=== PATIENT | female | born 1975 | race Hispanic/Latino ===

== ENCOUNTER → 2017-02-12 | Day surgery (SDC) | payer BC ==
[~2017-02-12] MED LIST: ALBUTEROL0.63 MG/3 IH; CIPROFLOXACIN750 MG PO; DICYCLOMINE HCL20 MG PO; EPHEDRINE SULFATE INJ 50 MG/10 ML SYR ONE; FENTANYL CITRATE/PF 100MCG/2 ML INJ ONE; FLECTOR1 EACH PO; GLUCAGON FOR INJ 1 MG VIAL ONE; HYDROCORTISONE SOD SUCCINATE 100 MG VIAL ONE; LIDOCAINE HCL 2% LOCAL INJ 5 ML SDV VIAL INJ ONE; MEDROL4 MG/DOSE-; MIDAZOLAM HCL 5MG/ML 2ML VIAL ONE; MONTELUKAST SOD10 MG PO; PREDNISONE10 MG PO; PROPOFOL IV EMULSION 10 MG/ML 50 ML VIAL ONE; SYNTHROID50 MCG PO; VITAMIN D1000 UNI1 PO; Z.0.ATENOLOL25 MG PO; Z.0.HYDROCHLOROTHIA2 PO; Z.0.NAPROXEN500 M1 PO; [UNRECOGNIZED DRUG - OTHER] PO
--- NOTE | 2017-02-12 14:14 | Operative Report ---
DATE OF PROCEDURE: February 12, 2017 REFERRING PHYSICIAN: Dr. Pradip Garcia. PROCEDURE PERFORMED: 1. Esophagogastroduodenoscopy. 2. Colonoscopy with polypectomy. INDICATIONS FOR ESOPHAGOGASTRODUODENOSCOPY: Dysphagia to solids. Heartburn indigestion. INDICATIONS FOR COLONOSCOPY: Diarrhea, intermittent. History of bright red blood per rectum. MEDICATION: Patient was done under MAC. Please see anesthesiologist's note. PROCEDURE: With the patient in the left lateral decubitus position, the flexible fiberoptic Olympus gastroscope was introduced into the esophagus under direct visualization without any difficulty. There was some patchy erythema noted in the distal esophagus. Some focal nodularity was noted at the GE junction, and that was biopsied. There was a mild stricture also at the GE junction, and that was dilated to size 52-[place] Marte. The scope was then advanced with ease into the stomach. Mucosa overlying the antrum and the body revealed some patchy intense erythema and mild to moderate edema, and biopsies were obtained and sent to stain for H. pylori. The pylorus was of normal contour and shape, was intubated with ease, and the scope was advanced all the way to the 2nd portion of the duodenum. The scope was then withdrawn slowly. Mucosa overlying the proximal 2nd portion appeared to be within normal limits. Biopsies were obtained to rule out sprue considering patient's history of diarrhea. The mucosa overlying the duodenal bulb appeared to be within normal limits. The scope was then withdrawn back into the stomach and retroflexed, and the mucosa overlying the fundus and the cardia appeared to be within normal limits. The scope was then straightened out. The stomach was decompressed. The scope was subsequently withdrawn. Patient tolerated the procedure well. IMPRESSION: 1. Distal esophagitis. 2. Stricture at gastroesophageal junction, mild, dilated to size 52-[place] Marte. 3. Focal nodularity at gastroesophageal junction biopsied. 4. Gastritis biopsied. Biopsies sent to stain for H. pylori. 5. Rule out sprue. PLAN: Follow up histology. Initiate Protonix 40 mg 1 p.o. q.a.m. a.c. Patient was then turned around and after adequate lubrication of the anal canal, a flexible fiberoptic Olympus colonoscope was inserted into the rectum with ease and advanced all the way to the cecum. Mucosa overlying the cecum appeared to be within normal limits. The ileocecal valve was intubated, and the scope was advanced into the terminal ileum. Biopsies were obtained. The scope was then withdrawn back into the colon. It was then withdrawn slowly. Mucosa overlying the ascending and the transverse colon appeared to be within normal limits. Mild inflammatory changes were noted throughout the left colon, and multiple random biopsies were obtained. One polyp was hot biopsied and one polyp was snared from the descending colon. The scope was then retroflexed into the distal rectum and small internal hemorrhoids were noted, none of which was actively bleeding. The scope was then straightened out. The rectosigmoid area as well as the distal rectal area were decompressed. The scope was subsequently withdrawn after securing an adequate stool specimen that was sent for the appropriate stool studies. Patient tolerated the procedure well. IMPRESSION: 1. Descending colon polyps, hot biopsied times 1, snared times 1. 2. Mild patchy left-sided colitis. 3. Small internal hemorrhoids, none actively bleeding. PLAN: Follow up histology. Follow up stool studies. Initiate VSL#3 one p.o. daily. Patient will need a followup colonoscopy in 3 years. Job#: [id number] EV cc:PRADIP GARCIA DO
[2017-02-12 14:39] LABS: WBC,FECAL (FECAL LACTOFERRIN) NEGATIVE (NEGATIVE)
[2017-02-13 12:08] LABS: C DIFFICILE TOXIN A&B AMP PROB NEGATIVE (NEGATIVE)
== END | disposition home or self-care (01) ==
LOC: OR 09:48
PROVIDERS: ATTEND Internal Medicine Gastroenterology
DX: K29.70 Gastritis, unspecified, without bleeding (principal); D12.4 Benign neoplasm of descending colon; K63.5 Polyp of colon; K22.2 Esophageal obstruction; K51.50 Left sided colitis without complications; K20.9 Esophagitis, unspecified; K31.89 Other diseases of stomach and duodenum; A04.8 Other specified bacterial intestinal infections; K21.9 Gastro-esophageal reflux disease without esophagitis; K62.5 Hemorrhage of anus and rectum; K64.8 Other hemorrhoids; D64.9 Anemia, unspecified; J45.909 Unspecified asthma, uncomplicated; G47.33 Obstructive sleep apnea (adult) (pediatric); I10 Essential (primary) hypertension; E03.9 Hypothyroidism, unspecified; Z68.32 Body mass index [BMI] 32.0-32.9, adult; Z80.0 Family history of malignant neoplasm of digestive organs
CPT/HCPCS: 43239; 43450; 45384; 45385; 83630; 83993; 87045; 87177; 87328; 87493; J1720; J2001; J2250; 45378; J1610

== ENCOUNTER → 2018-02-02 | Day surgery (SDC) | payer BC ==
[~2018-02-02] MED LIST changes: +ABILIFY2 MG PO; +BISMUTH PO; +BUSPIRONE HCL5 MG PO; -EPHEDRINE SULFATE INJ 50 MG/10 ML SYR ONE; -FENTANYL CITRATE/PF 100MCG/2 ML INJ ONE; -GLUCAGON FOR INJ 1 MG VIAL ONE; -HYDROCORTISONE SOD SUCCINATE 100 MG VIAL ONE; +LEXAPRO10 MG PO; -LIDOCAINE HCL 2% LOCAL INJ 5 ML SDV VIAL INJ ONE; +METRONIDAZOLE PO; +MIDAZOLAM HCL 2 MG/2 ML VIAL ONE; -MIDAZOLAM HCL 5MG/ML 2ML VIAL ONE; +PANTOPRAZOLE SO40 MG PO; +PROPOFOL IV EMULSION 10 MG/ML 20 ML VIAL ONE; -PROPOFOL IV EMULSION 10 MG/ML 50 ML VIAL ONE; +RANITIDINE HCL300 M1 PO; +VENLAFAXINE HC150 MG PO; +tetracycline PO
[2018-02-02 15:30] VITALS: BP 127/82
--- NOTE | 2018-02-02 16:04 | Operative Report ---
DATE OF PROCEDURE: February 02, 2018 REFERRING PHYSICIAN: Dr. Pradip Garcia. PROCEDURE PERFORMED: Esophagogastroduodenoscopy with biopsies and esophageal dilatation. INDICATIONS FOR ESOPHAGOGASTRODUODENOSCOPY: Dysphagia, upper abdominal pain, nausea. MEDICATION: Patient was done under MAC. Please see anesthesiologist's note. PROCEDURE: With the patient in the left lateral decubitus position, the flexible fiberoptic Olympus gastroscope was introduced into the esophagus under direct visualization without any difficulty. There was some patchy erythema noted in the distal esophagus. A minute tongue of velvety red mucosa was noted extending proximally from the GE junction, and that was biopsied to rule out Hameed's. A mild stricture was noted at the GE junction, and that was dilated to size 52-[place] Marte. The scope was then advanced with ease into the stomach. Mucosa overlying the antrum and the body revealed some patchy erythema and moderate edema, and biopsies were obtained and sent to stain for H. pylori. Pylorus appeared to be of normal contour and shape, was intubated with ease, and the scope was advanced all the way to the 2nd portion of the duodenum. Biopsies were obtained from the proximal 2nd portion to rule out sprue. Mucosa overlying the duodenal bulb appeared to be within normal limits. The scope was then withdrawn back into the stomach and retroflexed, and the mucosa overlying the fundus and the cardia appeared to be within normal limits. The scope was then straightened out. The stomach was decompressed. The scope was subsequently withdrawn. Patient tolerated the procedure well. IMPRESSION: 1. Distal esophagitis. 2. Rule out Hameed's. 3. Esophageal stricture at gastroesophageal junction dilated to size 52-[place] Marte. 4. Gastritis biopsied. Biopsies sent to stain for H. pylori. 5. Rule out sprue. PLAN: Follow up histology. Increase Protonix to 40 mg 1 p.o. a.c. b.i.d. Job#: [id number] EV cc:PRADIP GARCIA DO
--- OUTSIDE RECORDS SUMMARY | 2018-02-09 12:24 | XMS REPORT | Clinical Summary ---
Author Author [facility] Organization [facility] Address Unknown Phone Unavailable Care Team Providers Care Account Manager Education Name Role Phone Corey Gibson MD PCP Allergies No Known Allergies Current Medications Prescription Sig. Disp. Refills Start End Date Status Date dicyclomine (BENTYL) 20 TK 1 T PO TID PRN 3 02/05/20 Active mg tablet 17 diclofenac-misoprostol TK 1 T PO BID UTD 2 02/23/20 Active (ARTHROTEC 75) 75-200 17 mg-mcg EC tablet mometasone (NASONEX) 50 2 sprays into each 17 g 12 03/06/20 03/06/20 Active mcg/actuation nasal nostril daily. 17 18 sprayIndications: Chronic non-seasonal allergic rhinitis, unspecified trigger loratadine (CLARITIN) 10 Take 1 tablet (10 mg 30 tablet 2 03/06/20 03/06/20 Active mg tabletIndications: total) by mouth daily. 17 18 Chronic non-seasonal allergic rhinitis, unspecified trigger Active Problems Problem Noted Date Chronic non-seasonal allergic rhinitis 03/06/2017 Otalgia of both ears 03/06/2017 Encounters Date Type Specialty Care Team Description 03/06/2017 Office Visit Otolaryngology Bakari Roque MD Otalgia of both ears (Primary Dx); Chronic non-seasonal allergic rhinitis, unspecified trigger after 02/01/2017 Social History Tobacco Use Types Packs/Day Years Used Date Never Smoker Alcohol Use Drinks/Week oz/Week Comments No Sex Assigned at Date Recorded Not on file Last Filed Vital Signs Vital Sign Reading Time Taken Blood Pressure 126/86 03/06/2017 11:48 AM BOG C[facility]TER Pulse 71 03/06/2017 11:48 AM BOG CUTTER Temperature - - Respiratory Rate - - Oxygen Saturation - - Inhaled Oxygen - - Concentration Weight 92.1 kg (203 lb) 03/06/2017 11:48 AM BOG CUTTER Height 167.6 cm (5' 6") 03/06/2017 11:48 AM BOG CUTTER Body Mass Index 32.77 03/06/2017 11:48 AM BOG CUTTER Plan of Treatment Health Maintenance Due Date Last Done Comments CERVICAL CANCER SCREENING 1997 INFLUENZA VACCINE 11/25/2017 02/14/2015 Results Not on fileafter 02/01/2017 Insurance Payer Benefit Subscriber ID Type Phone Address Plan / Group BCBS BCBS OUT xxxxxxxxxxxx PPO OF STATE
--- OUTSIDE RECORDS SUMMARY | 2018-02-09 12:24 | XMS REPORT ---
Author Author [facility] Organization [facility] Address Unknown Phone Unavailable Care Team Providers Care Cad Draftsman Name Role Phone ENEIDA PATEL Unavailable Unavailable Payers Payer Name Policy Type Policy Number Effective Date Expiration Date Problems This patient has no known problems. Allergies, Adverse Reactions, Alerts Allergy Name Allergy Type Status Severity Reaction(s) Onset Date Inactive Date Treating Clinician Comments iodine DA Active SV 2017-12-31 00:00:00 iodine DA Active SV 2015-01-14 00:00:00 Medications This patient has no known medications. Results Test Description Test Time Test Comments Text Results Atomic Results Result Comments [place] [address] Patient Name: TRESSA FAUST MR #: [id number] : 1975 Age/Sex: 41/F Req #: [id number] Adm Physician: Ordered by: ENEIDA PATEL MD Report #: [id number] Location: Room/Bed: Procedure: [id number] US/US LIVER Exam Date: 04/02/17 Exam Time: 0830 REPORT STATUS: Signed PROCEDURE: US LIVER COMPARISON: None. INDICATIONS: ELEVATED LIVER ENZYMES TECHNIQUE: Miller-scale and color doppler transverse and longitudinal images of the right upper quadrant of the abdomen were obtained. FINDINGS: Liver: Measures 14.8 cm in the midclavicular line with increased echogenicity compatible with fatty infiltration. Main portal vein: Measures 1.09 cm with normal forward flow Gallbladder: Surgically removed Common Bile Duct: Dilated measuring 1.1 cm Sonographic Garg's sign: Negative Right kidney: Measures 11.7 x 5.3 x 5.8 cm. Normal echogenicity. No solid masses or hydronephrosis. Pancreas: The visualized portions are unremarkable. Inferior vena cava: Patent Aorta: Within normal limits Ascites: None in the right upper quadrant of the abdomen. CONCLUSION: 1. Increased echogenicity of the liver compatible with fatty infiltration. 2. Dilated common bile duct without evidence of intraluminal stone most compatible with reservoir effect related to a prior cholecystectomy. Elma Mariscal D.O. Dictated by: Elma Mariscal D.O. on 04/02/2017 at 10:03 Electronically approved by: Elma Mariscal D.O. on 04/02/2017 at 10:03 Dictated By: ELMA MARISCAL DO 1003 Transcribed By: CHARI on 04/02/17 1003 COPY TO: ENEIDA PATEL MD
== END | disposition home or self-care (01) ==
LOC: OR 13:11
PROVIDERS: ATTEND Internal Medicine Gastroenterology
DX: K22.2 Esophageal obstruction (principal); K29.00 Acute gastritis without bleeding; K29.50 Unspecified chronic gastritis without bleeding; B96.81 Helicobacter pylori [H. pylori] as the cause of diseases classified elsewhere; K20.9 Esophagitis, unspecified; K21.9 Gastro-esophageal reflux disease without esophagitis; K76.0 Fatty (change of) liver, not elsewhere classified; J45.909 Unspecified asthma, uncomplicated; F41.9 Anxiety disorder, unspecified; Z91.041 Radiographic dye allergy status
CPT/HCPCS: 43239; 43450; J2250

== ENCOUNTER 2018-04-17 22:51 | Observation (INO) | payer BC ==
[~2018-04-17] VITALS: Ht 167.6 cm; Wt 98.0 kg
[~2018-04-17 22:51] MED LIST changes: -ABILIFY2 MG PO; -BISMUTH PO; -METRONIDAZOLE PO; -MIDAZOLAM HCL 2 MG/2 ML VIAL ONE; -PROPOFOL IV EMULSION 10 MG/ML 20 ML VIAL ONE; -VENLAFAXINE HC150 MG PO; -tetracycline PO
--- OUTSIDE RECORDS SUMMARY | 2018-04-17 22:53 | XMS REPORT | Clinical Summary ---
Author Author [facility] Organization [facility] Address Unknown Phone Unavailable Care Team Providers Care Rack Loader Name Role Phone Corey Gibson MD PCP Allergies No Known Allergies Medications End Date Status Medication Sig Dispensed Refills Start Date Active dicyclomine (BENTYL) 20 TK 1 T PO TID 3 mg tablet PRN 7 Active diclofenac-misoprostol TK 1 T PO BID 2 (ARTHROTEC 75) 75-200 UTD 7 mg-mcg EC tablet 03/06/2018 mometasone (NASONEX) 50 2 sprays into 17 g 12 mcg/actuation nasal each nostril 7 sprayIndications: Chronic daily. non-seasonal allergic rhinitis, unspecified trigger 03/06/2018 loratadine (CLARITIN) 10 Take 1 tablet 30 tablet 2 mg tabletIndications: (10 mg total) 7 Chronic non-seasonal by mouth allergic rhinitis, daily. unspecified trigger Active Problems Problem Noted Date Chronic non-seasonal allergic rhinitis 03/06/2017 Otalgia of both ears 03/06/2017 Social History Date Tobacco Use Types Packs/Day Years Used Never Smoker Alcohol Use Drinks/Week oz/Week Comments No Sex Assigned at Date Recorded Not on file Industry Job Start Date Occupation Not on file Not on file Not on file Travel End Travel History Travel Start No recent travel history available. Last Filed Vital Signs Not on file Plan of Treatment Health Maintenance Due Date Last Done Comments CERVICAL CANCER SCREENING 1997 INFLUENZA VACCINE 11/25/2017 02/14/2015 Results Not on fileafter 04/16/2017 Insurance Payer Benefit Subscriber ID Type Phone Address Plan / Group BCBS BCBS OUT xxxxxxxxxxxx PPO OF STATE Advance Directives Patient has advance care planning documents on file. For more information, yuki e contact: Kurt Reddy [address] [place] [address]
--- OUTSIDE RECORDS SUMMARY | 2018-04-17 23:02 | XMS REPORT | Clinical Summary ---
Author Author [facility] Organization [facility] Address Unknown Phone Unavailable Care Team Providers Care Loan Clerk Name Role Phone Corey Gibson MD PCP [...] more information, yuki e contact: Kurt Reddy [address] [place] [address]
[2018-04-17] MEDS ORDERED: MORPHINE SULFATE INJ 4 MG/ML INJ IV STA (23:28)
[2018-04-17] MEDS ORDERED: SODIUM CHLORIDE 0.9% 1000ML 1,000 ML IV STA (23:28)
[2018-04-17] MEDS ORDERED: ONDANSETRON HCL INJ 2 MG/ML VIAL IV STA (23:28)
[2018-04-18 00:17] LABS: BASOPHILS % 0.3 % (0.0-1.0); EOSINOPHILS % 0.2 % (0.0-6.0); HEMOGLOBIN 14.4 g/dL (12.0-16.0); LYMPHOCYTES # (AUTO) 3.6 (1.0-3.2); LYMPHOCYTES % 31.7 % (18.0-39.1); MEAN CORPUSCULAR HEMOGLOBIN 28.2 pg (28-32); MEAN CORPUSCULAR VOLUME 88.1 fL (81-99); MONOCYTES # (AUTO) 0.5 (0.2-0.8); MONOCYTES % 4.4 % (4.4-11.3); NEUTROPHILS # (AUTO) 7.1 (2.1-6.9); NEUTROPHILS % 62.7 % (38.7-80.0); PLATELET COUNT 271 x10e3/uL (140-360); RED BLOOD COUNT 5.11 x10e6/uL (3.6-5.1); RED CELL DISTRIBUTION WIDTH 12.9 % (11.7-14.4)
[2018-04-18 00:35] LABS: ALBUMIN 4.2 g/dL (3.5-5.0); ANION GAP 16.9 mmol/L (8-16); BLOOD UREA NITROGEN 12 mg/dL (7-26); BUN/CREATININE RATIO 15 (6-25); CALCIUM 9.8 mg/dL (8.4-10.2); CARBON DIOXIDE 24 mmol/L (22-29); CHLORIDE 103 mmol/L (98-107); CREATININE, SERUM 0.82 mg/dL (0.57-1.11); EST GLOMERULAR FILTRATION RATE > 60 ML/MIN (60-); GLUCOSE 105 mg/dL (74-118); POTASSIUM 3.9 mmol/L (3.5-5.1); SODIUM 140 mmol/L (136-145)
[2018-04-18 00:36] LABS: ALBUMIN/GLOBULIN RATIO 1.1 (0.8-2.0); ALKALINE PHOSPHATASE 101 IU/L (40-150); CREATINE KINASE 113 IU/L (29-168); LIPASE 18 U/L (8-78)
--- OUTSIDE RECORDS SUMMARY | 2018-04-18 01:08 | XMS REPORT | Clinical Summary ---
Author Author [facility] Organization [facility] Address Unknown Phone Unavailable Care Team Providers Care Sterile Tech Name Role Phone Corey Gibson MD PCP [...] VACCINE 11/25/2017 02/14/2015 Results Not on fileafter 04/17/2017 Insurance Payer Benefit Subscriber ID Type Phone Address Plan / Group BCBS BCBS OUT xxxxxxxxxxxx PPO OF STATE Advance Directives Patient has advance care planning documents on file. For more information, yuki e contact: Kurt Reddy [address] [place] [address]
[2018-04-18 01:11] LABS: ALANINE AMINOTRANSFERASE 32 IU/L (0-55)
[2018-04-18] MEDS: LEVOFLOXACIN 500MG/D5W 100ML IV SCH (01:20)
[2018-04-18] MEDS ORDERED: FENTANYL CITRATE/PF 100MCG/2 ML INJ IV ONE (02:15)
--- NOTE | 2018-04-18 02:59 | Diagnostic Imaging Report ---
EXAM: CT ABDOMEN/PELVIS WO DATE: 04/17/2018 11:28 PM INDICATION: Abdominal pain COMPARISON: None available TECHNIQUE: The abdomen and pelvis were scanned using a multidetector helical scanner. Coronal and sagittal reformations were obtained. CT low dose techniques were utilized, as applicable. IV Contrast: 0 ml Isovue 300/370 Oral contrast was administered. FINDINGS: Lack of IV contrast decreases sensitivity in evaluating abdominal and pelvic organs. LOWER THORAX: No consolidations. Right fat-containing Bochdalek hernia. LIVER/BILIARY: No masses. No ductal dilatation. GALLBLADDER: Surgically absent SPLEEN: Unremarkable PANCREAS: Unremarkable ADRENALS: No nodules KIDNEYS: No stones. No hydronephrosis. GI TRACT: No wall thickening or evidence of obstruction. Appendectomy. VESSELS: Unremarkable PERITONEUM/RETROPERITONEUM: No free air or fluid LYMPH NODES: No lymphadenopathy REPRODUCTIVE ORGANS/BLADDER: Displaced left tubal ligation clip posterior to the uterus, described on prior CT report from 06/14/2015. Right tubal ligation give appears in place. SOFT TISSUES: Unremarkable BONES: No suspicious bone lesions. IMPRESSION: 1. No nephroureterolithiasis or other acute abnormality. 2. Displaced left tubal ligation clip again noted. Signed by: Dr Cassia Benitez MD on 04/18/2018 2:56 AM
[2018-04-18 04:30] VITALS: BP 103/58
--- NOTE | 2018-04-18 04:30 | NUR ---
patient is a new admit that arrived via wheelchair. patient is awake and talking. patient has been helped into the bed. bed is in the lowest position and call ortez is within reach. will continue to monitor patient.
[2018-04-18] MEDS ORDERED: VENLAFAXINE HC150 MG PO (04:34)
[2018-04-18] MEDS ORDERED: ABILIFY2 MG PO (04:34)
--- NOTE | 2018-04-18 07:02 | NUR ---
Received patient mid fowlers position, side rails upx2, call light within reach.AAOX4 to time, person, place, situation. Respirations even and unlabored. Instructed patient to use call light for assistance. Voiced understanding.
[2018-04-18 07:11] LABS: BILIRUBIN,URINE NEGATIVE (NEGATIVE); CLARITY,URINE CLEAR (CLEAR); COLOR,URINE YELLOW (YELLOW); KETONES,URINE NEGATIVE (NEGATIVE); LEUKOCYTE ESTERASE ,URINE NEGATIVE (NEGATIVE); NITRITE,URINE NEGATIVE (NEGATIVE); PROTEIN,URINE DIPSTICK NEGATIVE (NEGATIVE); URINE UROBILINOGEN 0.2 mg/dL (0.2 - 1)
[2018-04-18 07:14] LABS: EPITHELIAL CELLS,URINE RARE /LPF
--- NOTE | 2018-04-18 07:31 | NUR ---
PAGED DR.M PATEL OF CONSULT
[2018-04-18] MEDS ORDERED: PANTOPRAZOLE 40 MG 10ML VIAL IV STA (07:51)
[2018-04-18] MEDS ORDERED: ONDANSETRON HCL INJ 2 MG/ML VIAL IV STA (07:51)
[2018-04-18] MEDS ORDERED: ONDANSETRON HCL INJ 2 MG/ML VIAL IV PRN (08:00)
[2018-04-18] MEDS ORDERED: PANTOPRAZOLE INJ 40 MG in SODIUM CHLORIDE 0.9% 50ML 50 ML IV SCH (08:00)
[2018-04-18] MEDS ORDERED: MORPHINE SULFATE INJ 4 MG/ML INJ IV PRN (08:00)
[2018-04-18 08:07] VITALS: BP 102/54
[2018-04-18] MEDS ORDERED: PANTOPRAZOLE 40 MG 10ML VIAL ONE (08:14)
[2018-04-18 08:45] VITALS: BP 102/54
[2018-04-18] MEDS ORDERED: PANTOPRAZOLE 40 MG 10ML VIAL IV SCH (09:00)
[2018-04-18 11:30] VITALS: BP 114/58
[2018-04-18] MEDS ORDERED: METRONIDAZOLE PO (12:48)
[2018-04-18] MEDS ORDERED: BISMUTH PO (12:48)
[2018-04-18] MEDS ORDERED: tetracycline PO (12:48)
--- NOTE | 2018-04-18 12:55 | NUR ---
patient states she is only allergic to iodine. Allergy list updated.
[2018-04-18] MEDS: SODIUM CHLORIDE 0.9% 1000ML 1,000 ML IV SCH (13:19)
--- NOTE | 2018-04-18 14:09 | History and Physical ---
CHIEF COMPLAINT: Abdominal pain. HISTORY OF PRESENT ILLNESS: This is a 42-year-old woman who presents to [facility] today with 2 day history of worsening abdominal pain. Patient underwent EGD on February 02, 2018 here at [facility] and at that time was found to have gastritis and esophagitis. The pathology from that EGD revealed a presence of acute and chronic Helicobacter pylori organisms. The patient was actually prescribed anti-H pylori triple regimen, but she did not begin this medication regimen until 2 days before admission on April 15, 2018. The patient states on the first day she had tense abdominal pain after taking all 4 doses. The patient states on date of admission on April 17, 2018, she began experiencing intractable nausea and vomiting which prompted her to come to the emergency room. In the emergency room, patient was found to have white cell count of 11,200 with hemoglobin 14.4 g/dL. Patient's BUN and creatinine is 12 and 0.82 recently. Hepatic transaminases are all within normal limits. Patient underwent a CT of the abdomen and pelvis without contrast that did not reveal any acute abdominal or pelvic abnormality. REVIEW OF SYSTEMS GENERAL: Weight has been stable. No fever or chills. The patient states she has been very sad lately secondary to depression. HEENT: No headaches. No visual changes. CARDIOVASCULAR/RESPIRATORY: No chest pain. GI: Abdominal pain for 2 days with intractable nausea and vomiting yesterday. : No UTI symptoms. NEUROMUSCULAR: No limb weakness or numbness. ALLERGIES: INTRAVENOUS IODINE CONTRAST FAMILY HISTORY: Mother with type 2 diabetes and hypertension. SURGICAL HISTORY 1. Laparoscopic cholecystectomy. 2. Laparoscopic appendectomy. 3. Endometrial ablation. 4. Left knee surgery twice. 5. Bilateral tubal ligation. HOME MEDICATIONS 1. Pylera regimen q.i.d. for a total of 10 days (patient only took this medication for 1 day). 2. Pylera (Bismuth, metronidazole, and tetracycline q.i.d. for a total of 10 days (patient only took 1 dose of this regimen). 3. Effexor ER 150 mg daily. 4. Abilify 2 mg daily. PAST MEDICAL HISTORY 1. Endoscopically proved gastritis. 2. Lbwye-tg-sujysma Helicobacter pylori gastritis. 3. Major depressive disorder. 4. Mild obesity. SOCIAL HISTORY: This woman is single. She lives in her house with her children. Patient is employed as an unit manager. Smokes tobacco, but denies any alcohol use. QA REVIEWER: She is G5, P5. No history of gestational diabetes or preeclampsia. PHYSICAL EXAMINATION GENERAL: She is awake, alert, fully oriented. She is visibly upset. She becomes emotional and tearful when discussing her medical issues. VITALS: Height is 5 feet 6 inches, weight is 216 pounds, BMI of 35, blood pressure is 114/58, pulse 68, respiratory rate 18, oxygen saturation 97% on room air, temperature 97.7. INTEGUMENT: Skin is warm and dry. No pallor or diaphoresis. HEENT: Anicteric sclerae with dry mucous membranes. NECK: Supple. CARDIOVASCULAR: Regular rate and rhythm. LUNGS: No rales. No rhonchi. No wheezes. ABDOMEN: Obese. She has exquisite tenderness in the midepigastric area that radiates to her back. Difficult to assess for organomegaly or masses because of patient's body habitus. EXTREMITIES: No edema or deformity. NEUROLOGIC: Intact. DIAGNOSES 1. Umsbf-yg-nrgrsqu Helicobacter pylori gastritis. 2. Major depressive disorder. 3. Tobacco abuse. 4. Mild obesity, body mass index 35. PLAN 1. Recommend tobacco cessation since tobacco smoking worsen gastritis symptoms. 2. Intravenous pantoprazole. 3. Consult gastroenterology. 4. Gentle intravenous fluids. 5. Restart psychotropics namely antidepressants and atypical antipsychotics. I spent 35 minutes in the care of this patient. Job#: [id number] KERVIN WADDELL
[2018-04-18 15:27] VITALS: BP 102/66
[2018-04-18] MEDS: PANTOPRAZOL 40MG/SOD CHL 0.9% 50 ML IV SCH ×2 (15:33→20:14)
--- NOTE | 2018-04-18 18:25 | NUR ---
Resting in bed. No s/s of acute distress noted. Report to be given to oncoming nurse
[2018-04-18] MEDS ORDERED: METOCLOPRAMIDE HCL 10 MG/2ML VIAL IV ONE (18:30)
[2018-04-18] MEDS: METOCLOPRAMIDE HCL 10 MG/2ML VIAL IV SCH (20:14)
[2018-04-18 20:38] VITALS: BP 99/55
--- NOTE | 2018-04-18 21:21 | NUR ---
dr Chase Rasmussen came and made a round, he changed the diet to Full liquid diet.
[2018-04-19] VITALS: BP 99/54
[2018-04-19] MEDS: LEVOFLOXACIN 500MG/D5W 100ML IV SCH (00:38)
[2018-04-19] MEDS: PANTOPRAZOL 40MG/SOD CHL 0.9% 50 ML IV SCH ×2 (01:45→06:36)
[2018-04-19 03:30] VITALS: BP 99/54
[2018-04-19] MEDS: SODIUM CHLORIDE 0.9% 1000ML 1,000 ML IV SCH ×2 (04:23→09:53)
[2018-04-19 05:05] LABS: BASOPHILS % 0.3 % (0.0-1.0); EOSINOPHILS % 0.1 % (0.0-6.0); HEMATOCRIT 39.5 % (34.2-44.1); HEMOGLOBIN 12.8 g/dL (12.0-16.0); LYMPHOCYTES % 28.7 % (18.0-39.1); MEAN CORPUSCULAR HEMOGLOBIN 28.9 pg (28-32); MEAN CORPUSCULAR HGB CONC 32.4 g/dL (31-35); MEAN CORPUSCULAR VOLUME 89.2 fL (81-99); MONOCYTES # (AUTO) 0.5 (0.2-0.8); MONOCYTES % 7.3 % (4.4-11.3); NEUTROPHILS # (AUTO) 4.4 (2.1-6.9); PLATELET COUNT 218 x10e3/uL (140-360); RED BLOOD COUNT 4.43 x10e6/uL (3.6-5.1); RED CELL DISTRIBUTION WIDTH 12.9 % (11.7-14.4)
[2018-04-19 05:39] LABS: ALANINE AMINOTRANSFERASE 33 IU/L (0-55); ALBUMIN 3.2 g/dL (3.5-5.0); ALKALINE PHOSPHATASE 68 IU/L (40-150); ANION GAP 13.3 mmol/L (8-16); BLOOD UREA NITROGEN 6 mg/dL (7-26); BUN/CREATININE RATIO 8 (6-25); CALCIUM 8.3 mg/dL (8.4-10.2); CARBON DIOXIDE 22 mmol/L (22-29); CHLORIDE 105 mmol/L (98-107); CREATININE, SERUM 0.71 mg/dL (0.57-1.11); EST GLOMERULAR FILTRATION RATE > 60 ML/MIN (60-); GLUCOSE 90 mg/dL (74-118); POTASSIUM 4.3 mmol/L (3.5-5.1); SODIUM 136 mmol/L (136-145)
[2018-04-19 05:52] VITALS: BP 91/54
[2018-04-19] MEDS: METOCLOPRAMIDE HCL 10 MG/2ML VIAL IV SCH (06:36)
[2018-04-19 08:00] VITALS: BP 112/63
[2018-04-19] MEDS ORDERED: PANTOPRAZOL 40MG/SOD CHL 0.9% 50 ML IV SCH (08:00)
[2018-04-19] MEDS ORDERED: VENLAFAXINE HCL 75 MG CAPCR PO SCH (09:00)
[2018-04-19] MEDS ORDERED: ARIPIPRAZOLE 2 MG TABLET PO SCH (09:00)
[2018-04-19 09:23] VITALS: BP 91/54
[2018-04-19 12:10] VITALS: BP 103/59
--- NOTE | 2018-04-19 12:20 | NUR ---
Discharge instructions given to patient, patient verbalizes understanding. IV removed with tip intact; dressing applied. All personal belongings packed. Pt escorted to personal vehicle in stable condition with all belongings.
--- NOTE | 2018-04-19 12:23 | NUR ---
Dictated DC summary: [id number]
--- NOTE | 2018-04-19 13:21 | Discharge Summary ---
ADMIT DIAGNOSES 1. Qsylc-mn-sntvoga Helicobacter pylori gastritis. 2. Major depressive disorder. 3. Tobacco abuse. 4. Mild obesity, body mass index 35. DISCHARGE DIAGNOSES 1. Veafs-gm-euqzwzg Helicobacter pylori gastritis. 2. Major depressive disorder. 3. Adjustment disorder. 4. Tobacco abuse. 5. Mild obesity, body mass index 35. HOSPITAL COURSE: This 42-year-old woman was admitted to [facility] with a diagnosis of intractable abdominal pain secondary to bhpki-re-cojwkno Helicobacter pylori gastritis. Patient underwent EGD in January 2018, which confirmed the presence of both acute and chronic gastritis with occasional Helicobacter pylori organisms. Patient was prescribed Pylera by her utility worker roller shop, name is Dr. Madan Patel, for her Helicobacter pylori gastritis infection. Unfortunately, this combination of bismuth, tetracycline, metronidazole in the form of Pylera, caused the patient to experience intense abdominal pain and intractable nausea and vomiting. The patient's brief hospitalization was unremarkable. The patient has stated that her main issue was depression since she had been off her Abilify and Effexor for at least 2 to 3 days prior to admission because of her abdominal pain. Patient states she is very sad because this is the first [place] holidays where her recently will not be present with her and her family. Patient was very adamant about being discharged home. The patient stated that if she was not discharged home that she would likely leave against medical advice. The patient's condition on discharge was stable. DISCHARGE MEDICATIONS 1. Pantoprazole 40 mg by mouth twice a day. 2. Ranitidine 150 mg at bedtime. 3. Abilify 2 mg daily. 4. Venlafaxine XR 150 mg daily. The patient was instructed to stop her Pylera regimen. FOLLOWUP INSTRUCTIONS: Patient instructed to follow up with Dr. Madan Patel, her utility worker roller shop, within 1 to 2 weeks. LUCAS PURCELL MD Job#: [id number] TA cc:MADAN PATEL MD
== END 2018-04-19 12:15 | disposition home or self-care (01) ==
LOC: ER 23:00 → ERHOLD 04-18 01:05 → IMCU 04-18 04:54
DX: K29.00 Acute gastritis without bleeding (principal); B96.81 Helicobacter pylori [H. pylori] as the cause of diseases classified elsewhere; F32.9 Major depressive disorder, single episode, unspecified; Z72.0 Tobacco use; E66.9 Obesity, unspecified; Z68.35 Body mass index [BMI] 35.0-35.9, adult; T37.8X5A Adverse effect of other specified systemic anti-infectives and antiparasitics, initial encounter; Z91.041 Radiographic dye allergy status; F43.21 Adjustment disorder with depressed mood
CPT/HCPCS: 36415 ×2; 74176; 80053 ×2; 81001; 82550; 82553; 83690; 84484; 85025 ×2; 96374; 96375; 99284; G0378 ×2; J1956 ×2; J2270; J2405; J2765 ×2; J7030 ×2

== ENCOUNTER 2018-05-01 15:45 | Emergency (ER) | payer BC ==
[~2018-05-01] VITALS: Ht 167.6 cm; Wt 98.0 kg
[~2018-05-01 15:45] MED LIST changes: +ABILIFY2 MG PO; +BISMUTH PO; +METRONIDAZOLE PO; +VENLAFAXINE HC150 MG PO; +tetracycline PO
--- OUTSIDE RECORDS SUMMARY | 2018-05-01 15:48 | XMS REPORT | Clinical Summary ---
Author Author [facility] Organization [facility] Address Unknown Phone Unavailable Care Team Providers Care Economist Research Assistant Name Role Phone Corey Gibson MD PCP [...] VACCINE 11/25/2017 02/14/2015 Results Not on fileafter 04/30/2017 Insurance Payer Benefit Subscriber ID Type Phone Address Plan / Group BCBS BCBS OUT xxxxxxxxxxxx PPO OF STATE Advance Directives Patient has advance care planning documents on file. For more information, yuki e contact: Kurt Reddy [address] [place] [address]
--- OUTSIDE RECORDS SUMMARY | 2018-05-01 15:52 | XMS REPORT | Clinical Summary ---
Author Author [facility] Organization [facility] Address Unknown Phone Unavailable Care Team Providers Care Paving Supervisor Name Role Phone Corey Gibson MD PCP [...] more information, yuki e contact: Kurt Reddy [address] [place] [address]
[2018-05-01 17:24] LABS: BASOPHILS % 0.3 % (0.0-1.0); HEMATOCRIT 41.6 % (34.2-44.1); HEMOGLOBIN 13.6 g/dL (12.0-16.0); LYMPHOCYTES # (AUTO) 2.7 (1.0-3.2); LYMPHOCYTES % 28.6 % (18.0-39.1); MEAN CORPUSCULAR HEMOGLOBIN 28.6 pg (28-32); MEAN CORPUSCULAR HGB CONC 32.7 g/dL (31-35); MEAN CORPUSCULAR VOLUME 87.6 fL (81-99); MONOCYTES # (AUTO) 0.5 (0.2-0.8); MONOCYTES % 4.9 % (4.4-11.3); NEUTROPHILS # (AUTO) 6.1 (2.1-6.9); NEUTROPHILS % 65.7 % (38.7-80.0); PLATELET COUNT 282 x10e3/uL (140-360); RED BLOOD COUNT 4.75 x10e6/uL (3.6-5.1); RED CELL DISTRIBUTION WIDTH 12.9 % (11.7-14.4)
[2018-05-01 17:49] LABS: ALANINE AMINOTRANSFERASE 30 IU/L (0-55); ALBUMIN/GLOBULIN RATIO 1.1 (0.8-2.0); ALKALINE PHOSPHATASE 82 IU/L (40-150); AMYLASE 50 U/L (25-125); ANION GAP 14.3 mmol/L (8-16); BLOOD UREA NITROGEN 7 mg/dL (7-26); BUN/CREATININE RATIO 11 (6-25); CALCIUM 8.9 mg/dL (8.4-10.2); CARBON DIOXIDE 25 mmol/L (22-29); CHLORIDE 101 mmol/L (98-107); CREATININE, SERUM 0.66 mg/dL (0.57-1.11); EST GLOMERULAR FILTRATION RATE > 60 ML/MIN (60-); GLUCOSE 88 mg/dL (74-118); LIPASE 11 U/L (8-78); POTASSIUM 3.3 mmol/L (3.5-5.1); SODIUM 137 mmol/L (136-145)
[2018-05-01 18:24] LABS: BILIRUBIN,URINE NEGATIVE (NEGATIVE); CLARITY,URINE HAZY (CLEAR); COLOR,URINE YELLOW (YELLOW); KETONES,URINE NEGATIVE (NEGATIVE); LEUKOCYTE ESTERASE ,URINE NEGATIVE (NEGATIVE); NITRITE,URINE NEGATIVE (NEGATIVE); PROTEIN,URINE DIPSTICK NEGATIVE (NEGATIVE); URINE UROBILINOGEN 0.2 mg/dL (0.2 - 1)
[2018-05-01 18:37] LABS: BACTERIA,URINE FEW /HPF; EPITHELIAL CELLS,URINE FEW /LPF; RBC,URINE 0-5 /HPF (0-5); WBC,URINE (MAN) 0-5 /HPF (0-5)
[2018-05-01 18:38] LABS: AMORPHOUS SEDIMENT,URINE FEW (FEW); MUCUS,URINE FEW (RARE)
[2018-05-01 19:20] VITALS: BP 142/65
== END 2018-05-01 19:29 | disposition home or self-care (01) ==
LOC: ER 15:50
DX: R10.11 Right upper quadrant pain (principal); R10.13 Epigastric pain; R11.2 Nausea with vomiting, unspecified
CPT/HCPCS: 36415; 80053; 81001; 81025; 82150; 83690; 85025; 99283

== ENCOUNTER → 2018-09-29 | Day surgery (SDC) | payer BC ==
[2018-09-28 10:44] LABS: BASOPHILS % 0.5 % (0.0-1.0); EOSINOPHILS # (AUTO) 0.3 (0.0-0.4); EOSINOPHILS % 2.9 % (0.0-6.0); HEMATOCRIT 42.1 % (34.2-44.1); HEMOGLOBIN 14.2 g/dL (12.0-16.0); LYMPHOCYTES # (AUTO) 2.3 (1.0-3.2); LYMPHOCYTES % 26.5 % (18.0-39.1); MEAN CORPUSCULAR HEMOGLOBIN 28.5 pg (28-32); MEAN CORPUSCULAR HGB CONC 33.7 g/dL (31-35); MEAN CORPUSCULAR VOLUME 84.4 fL (81-99); MONOCYTES # (AUTO) 0.5 (0.2-0.8); MONOCYTES % 5.3 % (4.4-11.3); NEUTROPHILS # (AUTO) 5.6 (2.1-6.9); NEUTROPHILS % 64.2 % (38.7-80.0); PLATELET COUNT 268 x10e3/uL (140-360); RED BLOOD COUNT 4.99 x10e6/uL (3.6-5.1); RED CELL DISTRIBUTION WIDTH 13.2 % (11.7-14.4)
[2018-09-28 11:08] LABS: ALANINE AMINOTRANSFERASE 54 IU/L (0-55); ALBUMIN/GLOBULIN RATIO 1.3 (0.8-2.0); ALKALINE PHOSPHATASE 84 IU/L (40-150); BLOOD UREA NITROGEN 5 mg/dL (7-26); BUN/CREATININE RATIO 8 (6-25); CALCIUM 9.2 mg/dL (8.4-10.2); CARBON DIOXIDE 23 mmol/L (22-29); CHLORIDE 105 mmol/L (98-107); CREATININE, SERUM 0.63 mg/dL (0.57-1.11); EST GLOMERULAR FILTRATION RATE > 60 ML/MIN (60-); GLUCOSE 96 mg/dL (74-118); SODIUM 138 mmol/L (136-145)
[~2018-09-29] VITALS: Ht 167.6 cm; Wt 99.8 kg
[2018-09-29] VITALS (9 sets, daily range): BP systolic 91–166; BP diastolic 63–89
[~2018-09-29] MED LIST changes: +ALPRAZOLAM 0.5 MG TAB ONE; +DIPHENHYDRAMINE HCL 25 MG CAP ONE; +DIPHENHYDRAMINE HCL INJ 50 MG/ML VIAL ONE; +FAMOTIDINE 20 MG/2 ML VIAL IV ONE; +FENTANYL CITRATE/PF 100MCG/2 ML INJ ONE; +HEPARIN SOD/SOD CHLORIDE 2,000 ML ONE; +IOPAMIDOL 370 MG/ML 200 ML INFUS..BTL INJ ONE; +LIDOCAINE HCL 2% LOCAL 20 ML VIAL ONE; +METHYLPREDNISOLONE SOD SUCC 125 MG/2ML VIAL ONE; +MIDAZOLAM HCL 2 MG/2 ML VIAL ONE; +SODIUM CHLORIDE 0.9% 1000ML 1,000 ML ONE; +VERAPAMIL HCL 2.5 MG/ML 2 ML VIAL ONE
--- OUTSIDE RECORDS SUMMARY | 2018-09-29 07:56 | XMS REPORT | Clinical Summary ---
Author Author [facility] Organization [facility] Address Unknown Phone Unavailable Care Team Providers Care Science Consultant Name Role Phone Corey Gibson MD PCP [...] Health Maintenance Due Date Last Done Comments INFLUENZA VACCINE 11/25/2018 02/14/2015 Results Not on fileafter 09/28/2017 Insurance Type Payer Benefit Subscriber ID Effective Phone Address Plan / Dates Group PPO BCBS BCBS OUT xxxxxxxxxxxx 2013- OF STATE Present Advance Directives Patient has advance care planning documents on file. For more information, yuki daniel contact: Kurt Reddy [address] [place] [address]
--- NOTE | 2018-09-29 08:23 | NUR ---
Pt premedicated for contrast allergy as ordered. Pt tolerated well
--- NOTE | 2018-09-29 11:55 | NUR ---
1155am Received pt to rm#[id number] Identifer[facility]. [facility] for abnormal stress test.Rt TR band approach. Tolerated procedure. DR Wallace was No fix or CAD. Daughter called and will arrive for dc planning instructions. For dc after TR Band off starting at 1245. 11cc to balloon.Back to baseline orientation. Respiration shallow and regular. 98%RA. Abdomen soft and non tender Denies necessity to defecate or urinate. Bilateral pulsesx4 PT/DP.Iv infusing NS at kvo. Rt TR band with normal neuro vascular function. NO oozing at site. 1245p Reduction of TR band air started from bladder to TR band No gross issues pain pallor pressure or dysrhythmia. -2cc positive 9cc no neuro-vascular function.No oozing. 1300p -2cc positive neuro-vascular function.No oozing. 1315p -2cc positive neuro-vascular function. No oozing. 1330p all air out of bladder of TR band Site w/o oozing Neuro Sterile 2x2 and gauze dressing with Coban and arm splint Iv removed with Coban and 2x2 dressing No gross issues pain pallor pressure of dysrhythmia. Dc planning discussed with daughter and copies with patient. Assist dressing Escorted to car with [facility] [place] Denies CP or SOB.
--- NOTE | 2018-09-29 18:00 | Operative Report ---
DATE OF PROCEDURE: 09/29/2018 SURGEON: Rahul Wallace MD Cardiology Catheterization Report INDICATIONS FOR PROCEDURES: Chest pain and positive stress test. PREPROCEDURE ASSESSMENT: The patient's medical history, social history, prior experience with anesthesia were reviewed prior to the procedure and the patient was deemed to be an appropriate candidate for moderate sedation. The risks, the benefits, and the alternatives to the treatment were explained to the patient prior to the procedure. Informed consent was documented in the medical record. MEDICATIONS: Please see nursing notes for medications administered during the procedure. PROCEDURES PERFORMED: 1. Coronary angiography, right radial approach. 2. Left heart catheterization. PROCEDURE IN DETAIL: The patient was brought to the cardiac catheterization laboratory in a fasting state. Right wrist was prepped and draped in a sterile fashion. Access to the right radial artery was obtained using modified Seldinger technique and a 6-Jordanian slender sheath was inserted into the right radial artery without complications. Coronary angiography and left heart catheterization were performed using a 5-Jordanian Ashlee radial catheter. All catheters were removed over a wire. Multiple orthogonal views were taken of each coronary artery. Findings at this as documented below. Access site was closed using a TR band device. FINDINGS: Left Main Coronary Artery: Large caliber, no CAD. LAD: Large caliber, one large diagonal branch. No significant CAD. Left Circumflex Artery: Medium size nondominant left circumflex. No significant CAD. RCA: Large caliber dominant RCA. Large RPL system and a medium size RPDA system. No significant CAD. Left Heart Catheterization: LV pressure was 109 with a LVEDP of 14. No gradient across the aortic valve. ESTIMATED BLOOD LOSS: 20 mL. GRAFTS AND IMPLANTS: None. SPECIMEN REMOVED: None. COMPLICATIONS: None. FINAL RECOMMENDATIONS: 1. Continue optimal medical therapy and risk factor control. 2. Follow up in clinic 2 weeks post procedure. MD LATOYA OlsonP/MODL /[id number]
== END | disposition home or self-care (01) ==
LOC: CATH LAB 07:48
PROVIDERS: ATTEND Internal Medicine
DX: I20.8 Other forms of angina pectoris (principal); R94.39 Abnormal result of other cardiovascular function study; J45.909 Unspecified asthma, uncomplicated; I10 Essential (primary) hypertension; Z91.041 Radiographic dye allergy status; Z01.812 Encounter for preprocedural laboratory examination; Z68.39 Body mass index [BMI] 39.0-39.9, adult; Z82.49 Family history of ischemic heart disease and other diseases of the circulatory system; Z82.3 Family history of stroke
CPT/HCPCS: 36415; 80053; 84702; 85025; 93458; C1887; J2001; J2250; J2930; J7030; Q9967; J1200

== ENCOUNTER → 2019-01-22 | Day surgery (SDC) | payer BC ==
[~2019-01-22] MED LIST changes: -ALPRAZOLAM 0.5 MG TAB ONE; +DICLOFENAC PO; -DIPHENHYDRAMINE HCL 25 MG CAP ONE; -DIPHENHYDRAMINE HCL INJ 50 MG/ML VIAL ONE; -FAMOTIDINE 20 MG/2 ML VIAL IV ONE; -HEPARIN SOD/SOD CHLORIDE 2,000 ML ONE; +HYOSCYAMINE 0.125 MG TAB ONE; -IOPAMIDOL 370 MG/ML 200 ML INFUS..BTL INJ ONE; -LIDOCAINE HCL 2% LOCAL 20 ML VIAL ONE; -METHYLPREDNISOLONE SOD SUCC 125 MG/2ML VIAL ONE; +PROPOFOL IV EMULSION 10 MG/ML 20 ML VIAL ONE; -SODIUM CHLORIDE 0.9% 1000ML 1,000 ML ONE; +ULTRAM50 MG PO; -VERAPAMIL HCL 2.5 MG/ML 2 ML VIAL ONE
--- OUTSIDE RECORDS SUMMARY | 2019-01-22 13:06 | XMS REPORT | Continuity of Care Document ---
Author Author [employer] Organization [employer] Address Unknown Phone Unavailable Care Team Providers Care Windows Admin Name Role Phone [facility] [employer] Unavailable Unavailable Problems Problem Status Onset Date Classification Date Reported Comments Source Abdominal pain Active Problem 05/02/2018 [facility] Knee pain (finding) Active Problem 12/24/2018 [facility] Backache (finding) Resolved Problem 12/24/2018 [facility] Medications Medication Details Route Status Patient Instructions Ordering Provider Order Date Source Aripiprazole (Abilify*) 2 Mg Tablet, 2 Mg Oral Daily Active 05/01/2018 [facility] Buspirone Hcl 5 Mg Tablet, 10 Mg Oral Twice A Day as needed for Prn Active 05/01/2018 [facility] Escitalopram Oxalate (Lexapro) 10 Mg Tablet, 20 Mg Oral Daily Active 05/01/2018 [facility] Ranitidine Hcl 300 Mg Capsule, 1 Cap Oral Daily Active 05/01/2018 [facility] Bismuth , 140 Mg Oral Four Times Daily Active 04/19/2018 [facility] Metrodinazole , 125 Mg Oral Four Times Daily Active 04/19/2018 [facility] Tetracycline , 125 Mg Oral Four Times Daily Active 04/19/2018 [facility] Ciprofloxacin Hcl 750 Mg Tablet, 1 Tab Oral Twice A Day Active 02/02/2018 [facility] Dicyclomine Hcl 20 Mg Tablet, 20 Mg Oral Three Times A Day Active 02/02/2018 [facility] Methylprednisolone (Medrol Dose Pack) 4 Mg/Dose Pack Tab, Active 02/02/2018 [facility] Montelukast Sodium 10 Mg Tablet, 10 Mg Oral Daily Active 02/02/2018 [facility] Prednisone 10 Mg Tab, 10 Mg Oral Daily Active 02/02/2018 [facility] Vancot Dm , Oral Twice A Day Active 02/02/2018 [facility] Diclofenac Epolamine (Flector) 1 Each Adh..patch, 1 Tab Oral Twice A Day Active 02/11/2017 [facility] Cholecalciferol (Vitamin D3) (Vitamin D) 1,000 Unit Tablet, 41701 Unit Oral Weekly Active 04/18/2016 [facility] Naproxen 500 Mg Tablet.dr, 1 Tab Oral Twice A Day Active 04/18/2016 [facility] Levothyroxine Sodium (Synthroid) 50 Mcg Tab, 25 Mcg Oral Daily Active 11/03/2015 [facility] Atenolol 25 Mg Tablet, 1 Tab Oral Daily Active 07/26/2014 [facility] Hydrochlorothiazide 25 Mg Tablet, 1 Tab Oral Daily Active 07/26/2014 [facility] Albuterol Sulfate 0.63 Mg/3 Ml Vial.neb As Needed Active [facility] Pantoprazole Sodium (Protonix) 40 Mg Tablet. Twice A Day Active [facility] Venlafaxine Hcl (Venlafaxine Hcl Er) 150 Mg Cap.er.24h Daily Active [facility] Allergies, Adverse Reactions, Alerts Substance Category Reaction Severity Reaction type Status Date Reported Comments Source IV IODINE Unknown Allergy to Substance Active 05/01/2018 [facility] iodinated radiocontrast dyes Assertion Drug allergy Active [facility] iodine topical Assertion hives Drug allergy Active [facility] Immunizations Immunization Date Given Site Status Last Updated Comments Source influenza virus vaccine, inactivated 02/19/2016 Not Given [facility] Results Order Name Results Value Reference Range Date Interpretation Comments Source Blood leukocytes automated count (number/volume) 9.31 4.8 - 10.8 05/01/2018 [facility] Blood erythrocytes automated count (number/volume) 4.75 3.6 - 5.1 05/01/2018 [facility] Blood hemoglobin measurement (moles/volume) 13.6 12.0 - 16.0 05/01/2018 [facility] Automated blood hematocrit (volume fraction) 41.6 34.2 - 44.1 05/01/2018 [facility] Automated erythrocyte mean corpuscular volume 87.6 81 - 99 05/01/2018 [facility] Automated erythrocyte mean corpuscular hemoglobin (mass per erythrocyte) 28.6 28 - 32 05/01/2018 [facility] Automated erythrocyte mean corpuscular hemoglobin concentration measurement (mass/volume) 32.7 31 - 35 05/01/2018 [facility] RDW BldCo-Rto 12.9 11.7 - 14.4 05/01/2018 [facility] Automated blood platelet count (count/volume) 282 140 - 360 05/01/2018 [facility] Automated blood segmented neutrophil count as percentage of total leukocytes 65.7 38.7 - 80.0 05/01/2018 [facility] Automated blood lymphocyte count as percentage ot total leukocytes 28.6 18.0 - 39.1 05/01/2018 [facility] Automated blood monocyte count as percentage of total leukocytes 4.9 4.4 - 11.3 05/01/2018 [facility] Automated blood eosinophil count as percentage of total leukocytes 0.0 0.0 - 6.0 05/01/2018 [facility] Automated blood basophil count as percentage of total leukocytes 0.3 0.0 - 1.0 05/01/2018 [facility] IM GRANULOCYTES % 0.5 0.0 - 1.0 05/01/2018 [facility] Automated blood neutrophil count 6.1 2.1 - 6.9 05/01/2018 [facility] Blood lymphocytes count (number/volume) 2.7 1.0 - 3.2 05/01/2018 [facility] Blood monocytes automated count (number/volume) 0.5 0.2 - 0.8 05/01/2018 [facility] Automated blood eosinophil count 0.0 0.0 - 0.4 05/01/2018 [facility] Automated blood basophil count (count/volume) 0.0 0.0 - 0.1 05/01/2018 [facility] Absolute Immature Granulocyte (auto 0.05 0 - 0.1 05/01/2018 [facility] Serum or plasma sodium measurement (moles/volume) 137 136 - 145 05/01/2018 [facility] Serum or plasma potassium measurement (moles/volume) 3.3 3.5 - 5.1 05/01/2018 [facility] Serum or plasma chloride measurement (moles/volume) 101 98 - 107 05/01/2018 [facility] Serum or plasma carbon dioxide, total measurement (moles/volume) 25 22 - 29 05/01/2018 [facility] Serum or plasma anion gap 14.3 8 - 16 05/01/2018 [facility] Serum or plasma urea nitrogen measurement (mass/volume) 7 7 - 26 05/01/2018 [facility] Serum or plasma creatinine measurement (mass/volume) 0.66 0.57 - 1.11 05/01/2018 [facility] Serum or plasma urea nitrogen/creatinine mass ratio 11 6 - 25 05/01/2018 [facility] Estimated glomerular filtration rate (GFR) determination > 60 60 05/01/2018 [facility] Glucose measurement 88 74 - 118 05/01/2018 [facility] Serum or plasma calcium measurement (mass/volume) 8.9 8.4 - 10.2 05/01/2018 [facility] Serum or plasma total bilirubin measurement (mass/volume) 0.6 0.2 - 1.2 05/01/2018 [facility] Aspartate Amino Transf (AST/SGOT) 21 5 - 34 05/01/2018 [facility] Serum or plasma alanine aminotransferase measurement (enzymatic activity/volume) 30 0 - 55 05/01/2018 [facility] Serum or plasma protein measurement (mass/volume) 7.7 6.5 - 8.1 05/01/2018 [facility] Serum or plasma albumin measurement (mass/volume) 4.0 3.5 - 5.0 05/01/2018 [facility] Plasma globulin measurement (mass/volume) 3.7 2.3 - 3.5 05/01/2018 [facility] Serum or plasma albumin/globulin mass ratio 1.1 0.8 - 2.0 05/01/2018 [facility] Serum or plasma alkaline phosphatase measurement (enzymatic activity/volume) 82 40 - 150 05/01/2018 [facility] Serum or plasma amylase measurement (enzymatic activity/volume) 50 25 - 125 05/01/2018 [facility] Serum or plasma lipase measurement (enzymatic activity/volume) 11 8 - 78 05/01/2018 [facility] Urine color determination YELLOW YELLOW 05/01/2018 [facility] Urine clarity HAZY CLEAR 05/01/2018 [facility] Specific gravity of Urine by Test strip 1.030 1.010 - 1.025 05/01/2018 [facility] Urine pH measurement by automated test strip 6 5 - 7 05/01/2018 [facility] Urine leukocyte esterase detection by dipstick NEGATIVE NEGATIVE 05/01/2018 [facility] Urine nitrite detection NEGATIVE NEGATIVE 05/01/2018 [facility] Urine protein measurement by test strip (mass/volume) NEGATIVE NEGATIVE 05/01/2018 [facility] Urine glucose detection NEGATIVE NEGATIVE 05/01/2018 [facility] Urine ketones detection by automated test strip NEGATIVE NEGATIVE 05/01/2018 [facility] Urine urobilinogen measurement by test strip (mass/volume) 0.2 0.2 - 1 05/01/2018 [facility] Urine total bilirubin measurement (mass/volume) NEGATIVE NEGATIVE 05/01/2018 [facility] Urine erythrocytes detection NEGATIVE NEGATIVE 05/01/2018 [facility] Automated urine sediment leukocyte count by microscopy (number/high power field) 0-5 0 - 5 05/01/2018 [facility] Erythrocytes detection in urine sediment by light microscopy 0-5 0 - 5 05/01/2018 [facility] Bacteria detection in urine sediment by light microscopy FEW NONE 05/01/2018 [facility] Epithelial cells detection in urine sediment by light microscopy FEW NONE 05/01/2018 [facility] Amorphous sediment detection in urine sediment by light microscopy FEW FEW 05/01/2018 [facility] Mucus detection in urine sediment by light microscopy FEW RARE 05/01/2018 [facility] Urine human chorionic gonadotropin (hCG) detection NEGATIVE NEGATIVE 05/01/2018 [facility] Serum or plasma creatine kinase measurement (enzymatic activity/volume) 113 29 - 168 04/17/2018 [facility] Serum or plasma creatine kinase MB measurement (mass/volume) 1.60 0 - 5.0 04/17/2018 [facility] Troponin I measurement by highly sensitive enzyme immunoassay 0.107 0 - 0.300 04/17/2018 [facility] Pathology Reports No Data Provided for This Section Diagnostic Reports No Data Provided for This Section Consultation Notes No Data Provided for This Section Discharge Summaries No Data Provided for This Section History and Physicals No Data Provided for This Section Vital Signs No Data Provided for This Section Encounters Location Location Details Encounter Type Encounter Number Reason For Visit Attending Provider ADM Date DC Date Status Source Registered Surgical Day Care [id number] ENEIDA PATEL MD 02/02/2018 [facility] Discharged Inpatient (obs) [id number] MARISSA PATEL MD 04/18/2018 04/19/2018 [facility] Departed Emergency Room [id number] VICTORINA LEÓN MD 05/01/2018 05/01/2018 [facility] Outpatient [id number] [facility] Philip 12/22/[address] [facility] Ambulatory Pre-Reg [id number] [facility] Philip 12/22/2018 12/22/2018 [facility] Procedures Procedure Code Date Perfomer Comments Source CT of abdomen and pelvis without contrast [id number] 04/17/2018 [facility] EGD BIOPSY SINGLE/MULTIPLE 52227 02/02/2018 [facility] DILATE ESOPHAGUS 1/MULT PASS 12711 02/02/2018 [facility] Cholecystectomy [id number] 02/14/2016 [facility] Knee joint operation [id number] 07/30/2012 [facility] Bilateral tubal ligation [id number] 04/27/2006 [facility] Ablation [id number] [facility] Appendectomy [id number] [facility] Epidural anaesthesia [id number] [facility] Assessment and Plan No Data Provided for This Section Plan of Care Plan of Care Date Source Discharge Date 05/01/18 7:29pm Disposition HOME, SELF-CARE Condition at Discharge Stable Instructions/Education Provided Abdominal Pain - Adult Forms Provided Work/School Excuse Prescriptions See Medication Section Referrals PRADIP GARCIA DO Address: [address] [place] [id number] ENEIDA PATEL MD Order Date: Call for an appointment Address: [address] [place] [address] [address] [place] [address] Additional Instructions/Education 1- Take medication as directed 2-Drink plenty fluids 3- Follow up with dr Deisy Smith on Thursday 4- Return for any concerns 05/01/2018 [facility] Social History Social History Date Source Social History TypeResponse Alcohol Never Substance Abuse Use: None. Smoking Status Never smoker; Exposure to Tobacco Smoke None; Cigarette Smoking Last 365 Days No; Reg Smoking Cessation Counseling No entered on: 12/08/18 12/08/2018 [facility] Smoking Status Start Date Stop Date Never Smoker 05/01/2018 [facility] Family History No Data Provided for This Section Advance Directives Order Name Results Value Date Source Advance Directives Advance Directives Directive Response Recorded Date/Time Does the patient have an advance directive? No 04/18/18 4:30am Do you have a Directive to Physician? No 05/01/18 5:58pm Do you have a Medical Power of Carpet Cleaning Technician? No 05/01/18 5:58pm Do you have an out of hospital Do Not Resuscitate Order? No 05/01/18 5:58pm Do you have any special needs we should be aware of? No 05/01/18 5:58pm Do you have a support person here with you today? No 05/01/18 5:58pm Did patient receive Notice of Privacy Practices? Yes 05/01/18 5:58pm Did patient receive patient rights and responsibilities? Yes 05/01/18 5:58pm 05/01/2018 [facility] Functional Status No Data Provided for This Section
--- OUTSIDE RECORDS SUMMARY | 2019-01-22 13:06 | XMS REPORT | Summary of Care ---
Author Author [facility] [place] [place] Organization [facility] Address Unknown Phone Unavailable Encounter HQ Manasntr_alikassandra(FIN) [id number] Date(s): 12/22/18 - 12/22/18 [facility] [address] [place] [address]- [phone] Attending Physician: Alexey Philip MD Vital Signs No data available for this section Problem List Condition Effective Dates Status Health Status Informant Knee pain, Active left(Confirmed) Back pain(Confirmed) Resolved Allergies, Adverse Reactions, Alerts Substance Reaction Severity Status iodinated radiocontrast Active dyes iodine topical hives Active Medications No data available for this section Results No data available for this section Immunizations Not Given Vaccine Date Status Refusal Reason influenza virus vaccine, inactivated 02/19/16 Not Given Parent Or Guardian Refuses Procedures Procedure Date Related Diagnosis Body Site Status Cholecystectomy 02/14/16 Completed Knee joint operation 07/30/12 Completed Bilateral tubal ligation 2006 Completed Ablation Completed Appendectomy Completed Epidural anaesthesia Completed Social History Social History Type Response Alcohol Never Substance Abuse Use: None. Smoking Status Never smoker; Exposure to Tobacco Smoke None; Cigarette Smoking Last 365 Days No; Reg Smoking Cessation Counseling No entered on: 12/08/18 Assessment and Plan No data available for this section
--- OUTSIDE RECORDS SUMMARY | 2019-01-22 13:06 | XMS REPORT | Clinical Summary ---
Author Author [employer] Organization [employer] Address Unknown Phone Unavailable Care Team Providers Care Foot Drill Operator Name Role Phone Corey Gibson MD PCP [...] Use Types Packs/Day Years Used Never Smoker Drinks/Week oz/Week Comments Alcohol Use No Sex Assigned at Date Recorded Not on file Industry Job Start Date Occupation Not on file Not on file Not on file Travel End Travel History Travel Start No recent travel history available. Last Filed Vital Signs Not on file Plan of Treatment Health Maintenance Due Date Last Done Comments CERVICAL CANCER SCREENING 1997 INFLUENZA VACCINE 11/25/2018 02/14/2015 Results Not on fileafter 01/21/2018 Insurance Type Payer Benefit Subscriber ID Effective Phone Address Plan / Dates Group PPO BCBS BCBS OUT xxxxxxxxxxxx 2013- OF STATE Present Advance Directives For more information, please contact: [phone] Patient Keg Raiser Explanation Type Date Recorded Advance Directives, Living Will and Medical Power of Meat Se[employer] Associate
[2019-01-22 19:14] LABS: WBC,FECAL (FECAL LACTOFERRIN) POSITIVE (NEGATIVE)
[2019-01-22 19:35] VITALS: BP 120/84
--- NOTE | 2019-01-23 02:24 | Operative Report ---
DATE OF PROCEDURE: 01/22/2019 SURGEON: Madan Rasmussen MD PROCEDURE: EGD with biopsies and colonoscopy with biopsies. INDICATION FOR EGD: Acid reflux. INDICATIONS FOR COLONOSCOPY: Diarrhea, chronic. History of fecal incontinence. MEDICATIONS: The patient was done under MAC, please see anesthesiologist's note. PROCEDURE IN DETAIL: With the patient in left lateral decubitus position, the flexible fiberoptic Olympus gastroscope was introduced into the esophagus under direct visualization without any difficulty. There was some patchy erythema noted in distal esophagus. There was a minute tongue of velvety red mucosa noted to extend proximally from the GE junction that was biopsied to rule out Hameed's. The scope was then advanced with ease into the stomach and mucosa overlying the antrum and the body revealed some patchy erythema and low-grade to moderate edema and biopsies were obtained and sent to stain for H pylori. Pylorus was of normal contour and shape and was intubated with ease and the scope was advanced into the second portion of the duodenum. Biopsies were obtained from the proximal second portion and duodenal bulb to rule out sprue. The scope was then withdrawn back into the stomach and retroflexed. The mucosa overlying the fundus and cardia appeared to be within normal limits. The scope was then straightened out and was subsequently withdrawn. The patient tolerated procedure well. IMPRESSION: 1. Distal esophagitis. 2. Rule out Hameed's esophagus. 3. Gastritis, biopsied. Biopsies sent to stain for Helicobacter pylori. 4. Rule out sprue. PLAN: Follow up histology. Resume Protonix 40 mg 1 p.o. a.c. b.i.d. and Carafate 1 g p.o. a.c. t.i.d. and at bedtime. PROCEDURE IN DETAIL: The patient was then turned around. After adequate lubrication of the anal canal, a flexible fiberoptic Olympus colonoscope was inserted into the rectum with ease and advanced all the way to the cecum. Mucosa overlying the cecum appeared to be within normal limits. The ileocecal valve was intubated and the scope was advanced into the terminal ileum. Biopsies were obtained. The scope was then withdrawn back into the colon. It was then withdrawn slowly. Mucosa overlying the ascending and the transverse appeared to be within normal limits. There was some mild patchy inflammatory changes noted in the left colon and rectum and multiple random biopsies were obtained. The scope was then retroflexed into the distal rectum and small internal hemorrhoids were noted, none of which was actively bleeding. The scope was then straightened out and was subsequently withdrawn after securing an adequate stool specimen that was sent for the appropriate stool studies. The patient tolerated procedure well. IMPRESSION: 1. Left-sided colitis, patchy, low-grade. 2. Proctitis, mild. 3. Internal hemorrhoids, none actively bleeding. PLAN: Follow up histology. Follow up stool studies. Initiate Bentyl 20 mg 1 p.o. t.i.d. and Visbiome 1 p.o. b.i.d. Timing of followup colonoscopy if needed pending pathology results. Madan Rasmussen MD [facility] /[id number] cc: Corey Gibson DO
[2019-01-23 12:27] LABS: C DIFFICILE TOXIN A&B AMP PROB NEGATIVE (NEGATIVE)
== END | disposition home or self-care (01) ==
LOC: OR 13:03
PROVIDERS: ATTEND Internal Medicine Gastroenterology
DX: K21.9 Gastro-esophageal reflux disease without esophagitis (principal); K51.50 Left sided colitis without complications; K62.89 Other specified diseases of anus and rectum; K64.8 Other hemorrhoids; K20.9 Esophagitis, unspecified; K29.70 Gastritis, unspecified, without bleeding; F41.9 Anxiety disorder, unspecified; J45.909 Unspecified asthma, uncomplicated; Z91.041 Radiographic dye allergy status; R11.0 Nausea; R19.7 Diarrhea, unspecified; R15.9 Full incontinence of feces; K76.0 Fatty (change of) liver, not elsewhere classified; D50.9 Iron deficiency anemia, unspecified; B96.81 Helicobacter pylori [H. pylori] as the cause of diseases classified elsewhere
CPT/HCPCS: 43239; 45380; 81025; 83630; 83993; 87045; 87177; 87328; 87493; 93005; J2250; J2704; J3010

== ENCOUNTER → 2019-02-16 | Outpatient (CLI) | payer BC ==
[~2019-02-16] MED LIST changes: -FENTANYL CITRATE/PF 100MCG/2 ML INJ ONE; -HYOSCYAMINE 0.125 MG TAB ONE; -MIDAZOLAM HCL 2 MG/2 ML VIAL ONE; -PROPOFOL IV EMULSION 10 MG/ML 20 ML VIAL ONE
--- NOTE | 2019-02-16 09:11 | Diagnostic Imaging Report ---
Right upper quadrant abdominal ultrasound, 02/16/2019. History: Hepatic steatosis. Comparison: CT 04/18/2018. Ultrasound 04/02/2017. Discussion: Transverse and longitudinal images of the right upper quadrant of the abdomen were obtained demonstrating a liver of increased size and echogenicity measuring 17.3 cm in length. There is no evidence of a focal hepatic mass. The portal vein is patent with hepatopetal flow and is within normal limits measuring 9 mm in diameter. The common bile duct measures 11 mm in diameter. The gallbladder is absent. The right kidney is normal in size and echogenicity without evidence of hydronephrosis, stones, or mass and measures 12.7 cm in length. The pancreatic <body and tail> are visualized and are normal in appearance. The abdominal aorta is within normal limits. There is no evidence of free fluid. IMPRESSION: 1. Mild hepatomegaly with diffuse fatty infiltration of the liver, but no focal hepatic abnormality. 2. Status post cholecystectomy. Prominence of the CBD likely related to reservoir effect. Signed by: Semaj Wood on 02/16/2019 9:08 AM
== END ==
LOC: US 08:02
PROVIDERS: ATTEND Internal Medicine Gastroenterology
DX: K76.0 Fatty (change of) liver, not elsewhere classified (principal)
CPT/HCPCS: 76705

== ENCOUNTER 2021-06-02 13:12 | Emergency (ER) | payer OTHER ==
[~2021-06-02] VITALS: Ht 167.6 cm; Wt 99.8 kg
[2021-06-02] MEDS ORDERED: MECLIZINE HCL 12.5 MG TAB PO PRN (13:45)
[2021-06-02] MEDS ORDERED: MECLIZINE HCL 12.5 MG TAB PO ONE (13:45)
== END 2021-06-02 17:08 | disposition left against medical advice (07) ==
LOC: ER 13:37
DX: R42 Dizziness and giddiness (principal); S00.83XA Contusion of other part of head, initial encounter; M25.532 Pain in left wrist; M25.562 Pain in left knee; M25.561 Pain in right knee; W18.30XA Fall on same level, unspecified, initial encounter; Y93.01 Activity, walking, marching and hiking; Y92.89 Other specified places as the place of occurrence of the external cause; E78.5 Hyperlipidemia, unspecified; K76.9 Liver disease, unspecified; F41.9 Anxiety disorder, unspecified; Z87.442 Personal history of urinary calculi
CPT/HCPCS: 93005; 99282; J8597

== ENCOUNTER 2021-09-15 21:56 | Emergency (ER) | payer OTHER ==
[~2021-09-15] VITALS: Ht 167.6 cm; Wt 99.8 kg
[2021-09-15] MEDS ORDERED: AUGMENTIN 500-1 EACH PO (23:16)
[2021-09-15] MEDS ORDERED: ULTRAM 50MG50 MG PO (23:16)
== END 2021-09-15 23:20 | disposition home or self-care (01) ==
LOC: ER 22:40
DX: M67.441 Ganglion, right hand (principal); K76.9 Liver disease, unspecified; E78.5 Hyperlipidemia, unspecified; F41.9 Anxiety disorder, unspecified
CPT/HCPCS: 99282

== ENCOUNTER → 2022-05-08 | Outpatient (CLI) | payer OTHER ==
[~2022-05-08] MED LIST changes: +AUGMENTIN 500-1 EACH PO; +ULTRAM 50MG50 MG PO
== END ==
LOC: RAD 13:24
PROVIDERS: ATTEND Internal Medicine
DX: M47.812 Spondylosis without myelopathy or radiculopathy, cervical region (principal); M19.011 Primary osteoarthritis, right shoulder
CPT/HCPCS: 72040

== ENCOUNTER 2022-08-27 09:29 | Emergency (ER) | payer OTHER ==
[~2022-08-27] VITALS: Ht 167.6 cm; Wt 99.8 kg
[2022-08-27 10:05] LABS: BASOPHILS % 0.4 % (0.0-1.0); EOSINOPHILS # (AUTO) 0.3 (0.0-0.4); EOSINOPHILS % 2.7 % (0.0-6.0); HEMATOCRIT 41.2 % (34.2-44.1); HEMOGLOBIN 13.4 g/dL (12.0-16.0); LYMPHOCYTES % 17.6 % (18.0-39.1); MEAN CORPUSCULAR HEMOGLOBIN 28.2 pg (28-32); MEAN CORPUSCULAR HGB CONC 32.5 g/dL (31-35); MEAN CORPUSCULAR VOLUME 86.7 fL (81-99); MONOCYTES # (AUTO) 0.6 (0.2-0.8); MONOCYTES % 5.2 % (4.4-11.3); NEUTROPHILS # (AUTO) 8.3 (2.1-6.9); NEUTROPHILS % 73.7 % (38.7-80.0); PLATELET COUNT 260 x10e3/uL (140-360); RED BLOOD COUNT 4.75 x10e6/uL (3.6-5.1)
[2022-08-27 10:20] LABS: ALANINE AMINOTRANSFERASE 31 IU/L (0-55); ALBUMIN 3.8 g/dL (3.5-5.0); ALBUMIN/GLOBULIN RATIO 1.1 (0.8-2.0); ALKALINE PHOSPHATASE 86 IU/L (40-150); ANION GAP 12.7 mmol/L (8-16); BLOOD UREA NITROGEN 6 mg/dL (7-26); BUN/CREATININE RATIO 9 (6-25); CALCIUM 8.8 mg/dL (8.4-10.2); CARBON DIOXIDE 24 mmol/L (22-29); CHLORIDE 107 mmol/L (98-107); CREATININE, SERUM 0.64 mg/dL (0.57-1.11); GLUCOSE 94 mg/dL (74-118); POTASSIUM 3.7 mmol/L (3.5-5.1); SODIUM 140 mmol/L (136-145)
[2022-08-27] MEDS ORDERED: KETOROLAC TROMETHAMINE 30 MG/ML VIAL IV STA (10:57)
== END 2022-08-27 11:50 | disposition home or self-care (01) ==
LOC: ER 09:37
DX: R07.89 Other chest pain (principal); E78.5 Hyperlipidemia, unspecified; F41.9 Anxiety disorder, unspecified; K76.9 Liver disease, unspecified; Z87.442 Personal history of urinary calculi
CPT/HCPCS: 36415; 71045; 80053; 84484; 85025; 85379; 93005; 99284; J1885

== ENCOUNTER → 2022-10-03 | Day surgery (SDC) | payer OTHER ==
[~2022-10-03] MED LIST changes: +BUPROPION HCL100 M1 PO; +FENTANYL CITRATE/PF 100MCG/2 ML INJ ONE; +HYOSCYAMINE SULFATE 0.5 MG/ML INJ ONE; +LACTATED RINGER'S 1,000 ML ONE; +LEVOTHYROXINE50 MCG PO; +LIDOCAINE HCL 2% LOCAL INJ 5 ML SDV VIAL INJ ONE; +LOSARTAN-HCTZ1 EACH PO; +ONDANSETRON HCL INJ 2MG/ML 2ML 2 MG/ML VIAL ONE; +PRAVASTATIN SOD40 MG PO; +PROPOFOL IV EMULSION 50 ML IV ONE; +PROTONIX20 MG PO; +[UNRECOGNIZED DRUG - OTHER] PO
[2022-10-03 14:26] VITALS: TEMP 97
[2022-10-03 14:45] VITALS: BP 109/68; PULSE 87; RESP 17; O2SAT 97
== END | disposition home or self-care (01) ==
LOC: OR 10:56
PROVIDERS: ATTEND Internal Medicine Gastroenterology
DX: K21.00 Gastro-esophageal reflux disease with esophagitis, without bleeding (principal); K63.5 Polyp of colon; K29.50 Unspecified chronic gastritis without bleeding; B96.81 Helicobacter pylori [H. pylori] as the cause of diseases classified elsewhere; K31.89 Other diseases of stomach and duodenum; K52.9 Noninfective gastroenteritis and colitis, unspecified; K62.89 Other specified diseases of anus and rectum; K64.8 Other hemorrhoids; I10 Essential (primary) hypertension; E78.5 Hyperlipidemia, unspecified; J45.909 Unspecified asthma, uncomplicated; E03.9 Hypothyroidism, unspecified; M17.0 Bilateral primary osteoarthritis of knee; Z91.041 Radiographic dye allergy status; Z79.899 Other long term (current) drug therapy; Z80.0 Family history of malignant neoplasm of digestive organs
CPT/HCPCS: 36415; 43239; 43450; 45380; 83630; 83993; 84702; 87045; 87177; 87324; 87328; 87449; C9113; J1980; J2001; J2405; J2704; J3010; J7121; 45378

== ENCOUNTER 2024-02-17 09:13 | Emergency (ER) | payer OTHER ==
[~2024-02-17] VITALS: Ht 167.6 cm; Wt 99.8 kg
[~2024-02-17 09:13] MED LIST changes: +BUTALB-ACETAMI1 EACH PO; -FENTANYL CITRATE/PF 100MCG/2 ML INJ ONE; -HYOSCYAMINE SULFATE 0.5 MG/ML INJ ONE; -LACTATED RINGER'S 1,000 ML ONE; -LIDOCAINE HCL 2% LOCAL INJ 5 ML SDV VIAL INJ ONE; -ONDANSETRON HCL INJ 2MG/ML 2ML 2 MG/ML VIAL ONE; -PROPOFOL IV EMULSION 50 ML IV ONE
[2024-02-17 09:19] VITALS: TEMP 98.9
[2024-02-17] MEDS: SODIUM CHLORIDE 0.9% 1000ML 1,000 ML IV STA (10:18)
[2024-02-17 10:26] LABS: BASOPHILS # (AUTO) 0.1 (0.0-0.1); BASOPHILS % 0.5 % (0.0-1.0); EOSINOPHILS # (AUTO) 0.4 (0.0-0.4); EOSINOPHILS % 3.2 % (0.0-6.0); HEMATOCRIT 41.1 % (34.2-44.1); HEMOGLOBIN 12.9 g/dL (12.0-16.0); LYMPHOCYTES # (AUTO) 2.7 (1.0-3.2); LYMPHOCYTES % 24.4 % (18.0-39.1); MEAN CORPUSCULAR HEMOGLOBIN 27.4 pg (28-32); MEAN CORPUSCULAR HGB CONC 31.4 g/dL (31-35); MEAN CORPUSCULAR VOLUME 87.3 fL (81-99); MONOCYTES # (AUTO) 0.5 (0.2-0.8); MONOCYTES % 4.2 % (4.4-11.3); NEUTROPHILS # (AUTO) 7.4 (2.1-6.9); NEUTROPHILS % 67.2 % (38.7-80.0); PLATELET COUNT 288 x10e3/uL (140-360); RED BLOOD COUNT 4.71 x10e6/uL (3.6-5.1); RED CELL DISTRIBUTION WIDTH 13.6 % (11.7-14.4); WHITE BLOOD COUNT 10.96 x10e3/uL (4.8-10.8)
[2024-02-17 10:39] LABS: INR 0.92; PROTHROMBIN TIME 12.8 seconds (11.9-14.5)
[2024-02-17 10:49] LABS: ALANINE AMINOTRANSFERASE 51 IU/L (0-55); ALBUMIN 3.5 g/dL (3.5-5.0); ALBUMIN/GLOBULIN RATIO 0.9 (0.8-2.0); ALKALINE PHOSPHATASE 97 IU/L (40-150); ANION GAP 13.8 mmol/L (8-16); BILIRUBIN,TOTAL 0.5 mg/dL (0.2-1.2); BLOOD UREA NITROGEN 10 mg/dL (7-26); BUN/CREATININE RATIO 16 (6-25); CARBON DIOXIDE 22 mmol/L (22-29); CHLORIDE 105 mmol/L (98-107); CREATINE KINASE 62 IU/L (29-168); CREATININE, SERUM 0.62 mg/dL (0.57-1.11); EST GLOMERULAR FILTRATION RATE 110 ML/MIN (>=60); GLUCOSE 93 mg/dL (74-118); MAGNESIUM 1.8 MG/DL (1.3-2.1); POTASSIUM 3.8 mmol/L (3.5-5.1); SODIUM 137 mmol/L (136-145); TOTAL PROTEIN 7.3 g/dL (6.5-8.1)
[2024-02-17 10:53] VITALS: PULSE 67; RESP 15
[2024-02-17 10:54] LABS: TROPONIN I 0.008 ng/mL (0-0.300)
[2024-02-17] MEDS: KETOROLAC TROMETHAMINE 30 MG/ML VIAL IV STA (11:14)
[2024-02-17 13:42] VITALS: BP 111/67; PULSE 71; RESP 17; O2SAT 100
== END 2024-02-17 13:45 | disposition home or self-care (01) ==
LOC: ER 09:22
DX: R07.89 Other chest pain (principal); E78.5 Hyperlipidemia, unspecified; K76.9 Liver disease, unspecified; F41.9 Anxiety disorder, unspecified; F32.A Depression, unspecified; Z87.442 Personal history of urinary calculi; R94.31 Abnormal electrocardiogram [ECG] [EKG]
CPT/HCPCS: 36415; 71045; 80053; 82550; 83735; 83880; 84484; 84702; 85025; 85379; 85610; 85730; 93005; 99284; J1885; J7030

== ENCOUNTER → 2024-12-14 | Day surgery (SDC) | payer OTHER ==
[~2024-12-14] MED LIST changes: +DICYCLOMINE HCL10 MG PO; +ESTRADIOL1 MG PO; +FENTANYL CITRATE/PF 100MCG/2 ML INJ ONE; +LIDOCAINE HCL 2% LOCAL INJ 5 ML SDV VIAL INJ ONE; +NEURONTIN100 MG PO; +PROPOFOL IV EMULSION 10 MG/ML 20 ML VIAL ONE; +VENTOLIN HFA18 GM INH
[2024-12-14] MEDS: LACTATED RINGER'S 1,000 ML ONE (14:44)
[2024-12-14 16:28] VITALS: BP 121/76; PULSE 74; RESP 18; O2SAT 97
[2024-12-17 07:12] LABS: ENDOMYSIAL ANTIBODIES, IGA Negative (Negative)
[2024-12-17 12:09] LABS: TISSUE TRANSGLUTAMINASE IGA AB <2 U/mL (0-3)
== END | disposition home or self-care (01) ==
LOC: ENDO 14:04
PROVIDERS: ATTEND Internal Medicine Gastroenterology
DX: K22.2 Esophageal obstruction (principal); K29.50 Unspecified chronic gastritis without bleeding; B96.81 Helicobacter pylori [H. pylori] as the cause of diseases classified elsewhere; K20.90 Esophagitis, unspecified without bleeding; K21.9 Gastro-esophageal reflux disease without esophagitis; K58.2 Mixed irritable bowel syndrome; K64.8 Other hemorrhoids; K62.89 Other specified diseases of anus and rectum; R74.8 Abnormal levels of other serum enzymes; G47.33 Obstructive sleep apnea (adult) (pediatric); I10 Essential (primary) hypertension; Z71.89 Other specified counseling; E78.5 Hyperlipidemia, unspecified; E66.9 Obesity, unspecified; E03.9 Hypothyroidism, unspecified; J45.909 Unspecified asthma, uncomplicated; Z88.8 Allergy status to other drugs, medicaments and biological substances; Z91.041 Radiographic dye allergy status; Z79.899 Other long term (current) drug therapy; Z68.36 Body mass index [BMI] 36.0-36.9, adult; Z71.3 Dietary counseling and surveillance; Z80.0 Family history of malignant neoplasm of digestive organs
CPT/HCPCS: 43239; 43450; 82784; 83516; 86256; J2003; J2470; J2704; J3010; J7121